=== PATIENT | female | born 1965 | race Caucasian/White ===

== ENCOUNTER 2022-12-29 07:10 | Day surgery (SDC) | payer OTHER ==
[2022-12-29] MEDS ORDERED: Depo-Medrol 40 MG/ML IM ONE (07:11)
[2022-12-29] MEDS ORDERED: Sodium Chloride 0.9(Preservative Free) 10 ML IJ ONE (07:11)
[2022-12-29] MEDS ORDERED: LIDOCAINE HCL 1% 50 MG/5 ML VL PF IJ ONE (07:11)
[2022-12-29] MEDS ORDERED: DIPRIVAN 200 MG/20 ML IV ONE (08:31)
[2022-12-29] MEDS ORDERED: Versed 2 MG/2 ML Injection ONE (08:32)
[2022-12-29] MEDS ORDERED: Lactated Ringers 1,000 ML IV ONE (08:53)
--- NOTE | 2022-12-29 09:59 | XRAY ---
18 seconds of fluoroscopy was used in surgery for a lumbar MARISEL.
--- NOTE | 2022-12-29 09:59 | XRAY ---
Indication: Lumbar MARISEL. Intraoperative fluoroscopy was provided for 18 seconds. Single lateral digital spot image submitted for interpretation demonstrates posterior needle tip projecting posterior to lumbosacral junction interspace. Small amount of contrast injected for needle tip placement. Correlate with intraoperative findings/report.
== END 2022-12-29 09:07 | disposition home or self-care (01) ==
LOC: SDC-PAIN 07:10
PROVIDERS: ATTEND Psychiatry & Neurology Pain Medicine
DX: M54.16 Radiculopathy, lumbar region (principal); E11.9 Type 2 diabetes mellitus without complications; Z79.899 Other long term (current) drug therapy
CPT/HCPCS: 62323; 72100; 77003; 82947; J1030; J2001; J2250; J2704; Q9966

== ENCOUNTER 2023-02-02 07:58 | Day surgery (SDC) | payer OTHER ==
[2023-02-02] MEDS ORDERED: LIDOCAINE HCL 2% 100 MG/5 ML IJ ONE (07:59)
[2023-02-02] MEDS ORDERED: DIPRIVAN 200 MG/20 ML IV ONE (09:40)
--- NOTE | 2023-02-02 13:54 | XRAY ---
16 seconds of fluoroscopy was used in surgery for a bilateral L4-S1 MBB.
--- NOTE | 2023-02-02 13:54 | XRAY ---
Indication: Bilateral L4-S1 MBB. Intraoperative fluoroscopy provided for 16 seconds. Single digital spot image submitted for interpretation demonstrates posterior needle tips projecting over the expected left and right L4-S1 nerve roots. Correlate with intraoperative findings/report.
[2023-02-02] MEDS ORDERED: Lactated Ringers 1,000 ML IV ONE (14:58)
== END 2023-02-02 10:08 | disposition home or self-care (01) ==
LOC: SDC-PAIN 07:58
PROVIDERS: ATTEND Psychiatry & Neurology Pain Medicine
DX: M47.816 Spondylosis without myelopathy or radiculopathy, lumbar region (principal)
CPT/HCPCS: 64493; 64494; 72020; 77002; 82947; J2704

== ENCOUNTER 2023-03-02 08:47 | Day surgery (SDC) | payer OTHER ==
[2023-03-02] MEDS ORDERED: BUPIVACAINE 0.5% VIAL IJ ONE (08:48)
[2023-03-02] MEDS ORDERED: Versed 2 MG/2 ML Injection ONE (10:14)
[2023-03-02] MEDS ORDERED: DIPRIVAN 200 MG/20 ML IV ONE ×2 (10:14→10:22)
[2023-03-02] MEDS ORDERED: Lactated Ringers 1,000 ML IV ONE (10:56)
--- NOTE | 2023-03-02 13:04 | XRAY ---
16 seconds of fluoroscopy was used in surgery for a bilateral L4-S1 MBB.
== END 2023-03-02 10:45 | disposition home or self-care (01) ==
LOC: SDC-PAIN 08:47
PROVIDERS: ATTEND Psychiatry & Neurology Pain Medicine
DX: M47.816 Spondylosis without myelopathy or radiculopathy, lumbar region (principal); E11.9 Type 2 diabetes mellitus without complications; Z79.899 Other long term (current) drug therapy
CPT/HCPCS: 64493; 64494; 72020; 77002; 82947; J2250; J2704

== ENCOUNTER → 2023-03-30 | Day surgery (SDC) | payer OTHER ==
[~2023-03-30] MED LIST: BUPIVACAINE 0.5% VIAL IJ ONE; DIPRIVAN 200 MG/20 ML IV ONE; Depo-Medrol 40 MG/ML IM ONE; Lactated Ringers 1,000 ML IV ONE; XYLOCAINE-MPF 1% 5ML SDV IJ ONE
--- NOTE | 2023-03-30 10:12 | XRAY ---
Indication: Right L4-S1 RFA. Intraoperative fluoroscopy provided for 35 seconds. 5 digital spot image submitted for interpretation demonstrates posterior needle tips projecting over the expected right L4-S1 nerve roots. Correlate with intraoperative findings/report.
--- NOTE | 2023-03-30 10:44 | XRAY ---
35 seconds of fluoroscopy was used in surgery for a right L4-S1 RFA.
== END ==
LOC: SDC-PAIN 07:27
PROVIDERS: ATTEND Psychiatry & Neurology Pain Medicine
DX: M47.816 Spondylosis without myelopathy or radiculopathy, lumbar region (principal); E11.9 Type 2 diabetes mellitus without complications; Z79.899 Other long term (current) drug therapy
CPT/HCPCS: 64635; 64636; 72100; 77002; 82947; J1030; J2704

== ENCOUNTER 2023-03-31 07:39 | Day surgery (SDC) | payer OTHER ==
[2023-03-31] MEDS ORDERED: XYLOCAINE-MPF 1% 5ML SDV IJ ONE (07:40)
[2023-03-31] MEDS ORDERED: BUPIVACAINE 0.5% VIAL IJ ONE (07:40)
[2023-03-31] MEDS ORDERED: Depo-Medrol 40 MG/ML IM ONE (07:40)
[2023-03-31] MEDS ORDERED: DIPRIVAN 200 MG/20 ML IV ONE (08:40)
--- NOTE | 2023-03-31 09:29 | XRAY ---
Indication: Left L4-S1 RFA. Intraoperative fluoroscopy provided for 21 seconds. 3 digital spot image submitted for interpretation demonstrates posterior needle tips projecting over the expected left L4-S1 nerve roots. Correlate with intraoperative findings/report.
--- NOTE | 2023-03-31 10:25 | XRAY ---
21 seconds of fluoroscopy was used in surgery for a left L4-S1 RFA.
[2023-03-31] MEDS ORDERED: Lactated Ringers 1,000 ML IV ONE (16:10)
== END 2023-03-31 09:11 | disposition home or self-care (01) ==
LOC: SDC-PAIN 07:39
PROVIDERS: ATTEND Psychiatry & Neurology Pain Medicine
DX: M47.817 Spondylosis without myelopathy or radiculopathy, lumbosacral region (principal); E11.9 Type 2 diabetes mellitus without complications; Z79.899 Other long term (current) drug therapy
CPT/HCPCS: 64635; 64636; 72100; 77002; 82947; J1030; J2704

== ENCOUNTER 2023-10-26 07:06 | Day surgery (SDC) | payer OTHER ==
[2023-10-26] MEDS ORDERED: DIPRIVAN 200 MG/20 ML IV ONE (08:22)
--- NOTE | 2023-10-26 10:12 | XRAY ---
Indication: Right hip injection. Intraoperative fluoroscopy provided for 13 seconds. Single digital spot image submitted for interpretation demonstrates needle tip projecting lateral to right femur neck. Small amount of contrast injected for needle tip placement. Correlate with intraoperative findings/report.
--- NOTE | 2023-10-26 11:40 | XRAY ---
13 seconds of fluoroscopy was used in surgery for a right intra-articular hip injection.
[2023-10-26] MEDS ORDERED: Lactated Ringers 1,000 ML IV ONE (12:07)
== END 2023-10-26 08:55 | disposition home or self-care (01) ==
LOC: SDC-PAIN 07:06
PROVIDERS: ATTEND Psychiatry & Neurology Pain Medicine
DX: M16.11 Unilateral primary osteoarthritis, right hip (principal); E11.9 Type 2 diabetes mellitus without complications
CPT/HCPCS: 20610; 73501; 77002; 82947; J2704; Q9966

== ENCOUNTER 2024-02-01 09:19 | Day surgery (SDC) | payer OTHER ==
[2024-02-01] MEDS ORDERED: Decadron 4 MG INJ IV ONE (09:20)
[2024-02-01] MEDS ORDERED: Sodium Chloride 0.9(Preservative Free) 10 ML IJ ONE (09:20)
[2024-02-01] MEDS ORDERED: LIDOCAINE HCL 1% AMPUL 5 ML IJ ONE (09:20)
[2024-02-01] MEDS ORDERED: DIPRIVAN 200 MG/20 ML IV ONE (10:59)
[2024-02-01] MEDS ORDERED: Xylocaine-Mpf 2% 5 Ml Vial ONE (11:01)
--- NOTE | 2024-02-01 11:56 | XRAY ---
Indication: Right L2-L4 transforaminal MARISEL. Intraoperative fluoroscopy provided for 26 seconds. 4 digital spot image submitted for interpretation demonstrates posterior needle tips projecting over the expected right L2 and L4 nerve roots. Small amount of contrast injected for needle tip placement. Correlate with intraoperative findings/report.
--- NOTE | 2024-02-01 11:56 | XRAY ---
Indication: Right piriformis injection. Intraoperative fluoroscopy provided for 24 seconds. Single digital spot image submitted for interpretation demonstrates posterior needle tip projecting over the right piriformis. Small amount of contrast injected for needle tip placement. Correlate with intraoperative findings/report.
--- NOTE | 2024-02-01 12:10 | XRAY ---
24 seconds of fluoroscopy was used in surgery for a right piriformis injection.
--- NOTE | 2024-02-01 12:11 | XRAY ---
26 seconds of fluoroscopy was used in surgery for a right L2-L4 transforaminal MARISEL.
== END 2024-02-01 11:30 | disposition home or self-care (01) ==
LOC: SDC-PAIN 09:19
PROVIDERS: ATTEND Psychiatry & Neurology Pain Medicine
DX: M54.16 Radiculopathy, lumbar region (principal); M79.18 Myalgia, other site; E11.9 Type 2 diabetes mellitus without complications
CPT/HCPCS: 20552; 64483; 64484; 72100; 72170; 77002; 77003; 82947; J1100; J2704; Q9966